=== PATIENT | male | born 1940 | race Caucasian/White ===

== ENCOUNTER 2022-08-19 12:22 | Inpatient (IN) | payer OTHER, BC ==
[2022-08-19] MEDS ORDERED: ACETAMINOPHEN 1000 MG/100 ML BAG IVPB ONE (13:42)
[2022-08-19] MEDS ORDERED: ACETAMINOPHEN INJECTION 100 ML IVPB ONE (13:44)
[2022-08-19] MEDS ORDERED: CEFTRIAXONE 2 GM-D5W BAG 2 GM/50 ML BAG IVPB ONE (13:48)
[2022-08-19] MEDS ORDERED: CEFTRIAXONE 2 GM/100 ML BAG IVPB ONE (13:59)
[2022-08-19] MEDS ORDERED: SODIUM CHLORIDE 1,000 ML IV SCH (14:00)
[2022-08-19 14:37] LABS: INR 1.06 (0.83-1.09); PROTHROMBIN TIME (PATIENT) 12.3 SEC (9.7-13.0)
[2022-08-19 14:40] LABS: ACTIVATED PTT 31.3 SECONDS (25.2-36.5)
[2022-08-19] MEDS: DEXTROSE 5%-0.45% SALINE 1,000 ML IV SCH (16:58)
[2022-08-19 17:58] VITALS: BMI 36.5
[2022-08-20] MEDS ORDERED: ACETAMINOPHEN 1000 MG/100 ML BAG IVPB PRN (08:34)
[2022-08-20] MEDS: CEFTRIAXONE 1 GM in DEXTROSE 5%-WATER - 50 ML IVPB SCH (10:05)
[2022-08-20] MEDS: amLODIPine BESYLATE 5 MG TABLET (FP) PO SCH (11:30)
[2022-08-20] MEDS: ENOXAPARIN NA (PORCINE) 40 MG/0.4 ML DISP.SYRIN SQ SCH (17:37)
[2022-08-20] MEDS: DEXTROSE 5%-0.45% SALINE 1,000 ML IV SCH (17:38)
[2022-08-20] MEDS ORDERED: MELATONIN 5 MG TABLETS PO ONE (21:30)
[2022-08-20] MEDS: ATORVASTATIN CA 20 MG TABLET (FP) PO SCH (21:38)
[2022-08-20] MEDS: ALLOPURINOL 100 MG TABLET (FP) PO SCH (21:38)
[2022-08-20] MEDS: TAMSULOSIN HCL 0.4 MG CAP PO SCH (21:39)
[2022-08-21 09:14] LABS: BASO % 0.6 % (0-2.0); EOS % 1.7 % (0-4.5); HEMATOCRIT 33.9 % (35.4-49); HEMOGLOBIN 11.8 GM/dL (11.7-16.9); LYMPH % 25.4 % (8-40); MCH 30.7 pg (25.7-33.7); MCHC 34.9 g/dl (32.0-35.9); MEAN CELL VOLUME 87.8 fl (80-96); MEAN PLT VOLUME 8.3 fl (7.5-11.1); MONO % 6.2 % (3.8-10.2); NEUT % 66.1 % (42.8-82.8); PLATELET COUNT 182 10^3/uL (134-434); RBC 3.86 M/mm3 (4.00-5.60); WHITE BLOOD COUNT 5.6 K/mm3 (4.0-10.0)
[2022-08-21] MEDS: HYDROCHLOROTHIAZIDE 12.5 MG CAPSULE (FP) PO SCH (09:23)
[2022-08-21] MEDS: LOSARTAN POTASSIUM 50 MG TABLET PO SCH (09:23)
[2022-08-21] MEDS: ENOXAPARIN NA (PORCINE) 40 MG/0.4 ML DISP.SYRIN SQ SCH (09:23)
[2022-08-21] MEDS: amLODIPine BESYLATE 5 MG TABLET (FP) PO SCH (09:23)
[2022-08-21] MEDS: CEFTRIAXONE 1 GM in DEXTROSE 5%-WATER - 50 ML IVPB SCH (09:23)
[2022-08-21] MEDS: PANTOPRAZOLE 40 MG TABLET PO SCH (09:24)
[2022-08-21] MEDS: DEXTROSE 5%-0.45% SALINE 1,000 ML IV SCH ×2 (09:25→17:31)
[2022-08-21 09:55] LABS: POTASSIUM 3.9 mmol/L (3.5-5.1)
[2022-08-21 10:01] LABS: ALBUMIN 4.1 g/dl (3.4-5.0); BLOOD UREA NITROGEN 14.4 mg/dL (7-18)
[2022-08-21 10:03] LABS: CREATININE 1.2 mg/dL (0.55-1.3)
[2022-08-21 10:04] LABS: BILIRUBIN,TOTAL 0.6 mg/dL (0.2-1); TOT PROT 7.5 g/dl (6.4-8.2)
[2022-08-21] MEDS: ATORVASTATIN CA 20 MG TABLET (FP) PO SCH (21:18)
[2022-08-21] MEDS: TAMSULOSIN HCL 0.4 MG CAP PO SCH (21:18)
[2022-08-21] MEDS: ALLOPURINOL 100 MG TABLET (FP) PO SCH (21:18)
[2022-08-21] MEDS ORDERED: MELATONIN 5 MG TABLETS PO ONE (21:23)
[2022-08-22] MEDS: PANTOPRAZOLE 40 MG TABLET PO SCH (12:04)
[2022-08-22] MEDS: amLODIPine BESYLATE 5 MG TABLET (FP) PO SCH (12:04)
[2022-08-22] MEDS: ENOXAPARIN NA (PORCINE) 40 MG/0.4 ML DISP.SYRIN SQ SCH (12:04)
[2022-08-22] MEDS: CEFTRIAXONE 1 GM in DEXTROSE 5%-WATER - 50 ML IVPB SCH (12:04)
[2022-08-22] MEDS: LOSARTAN POTASSIUM 50 MG TABLET PO SCH (12:04)
[2022-08-22] MEDS: HYDROCHLOROTHIAZIDE 12.5 MG CAPSULE (FP) PO SCH (12:04)
[2022-08-22] MEDS ORDERED: PROPOFOL 20 ML ONE (15:57)
[2022-08-22] MEDS ORDERED: MIDAZOLAM HCL 2 MG/2 ML SINGLE DOSE VIAL ONE (15:57)
[2022-08-22] MEDS ORDERED: ROCURONIUM BROMIDE 50 MG/5 ML SYRINGE ONE (16:26)
[2022-08-22] MEDS ORDERED: BUPIVACAINE HCL/PF 0.5% (5 MG/ML) 30 ML VIAL IJ ONE (16:33)
[2022-08-22] MEDS ORDERED: NEOSTIGMINE METHYLSULFATE 0.5 MG/1 ML - 10 ML MDV ONE (17:19)
[2022-08-22] MEDS ORDERED: ONDANSETRON 4 MG/2 ML VIAL IVPUSH PRN ×2 (17:48→17:54)
[2022-08-22] MEDS ORDERED: DEXTROSE 5%-0.45% SALINE 1,000 ML IV SCH (17:54)
[2022-08-22] MEDS ORDERED: oxyCODONE HCL 5 MG TABLET PO PRN (17:57)
[2022-08-22] MEDS ORDERED: LACTATED RINGERS SOLUTION 1,000 ML IV SCH ×2 (18:00)
[2022-08-22] MEDS ORDERED: ACETAMINOPHEN INJECTION 100 ML IVPB ONE (18:08)
[2022-08-22] MEDS ORDERED: ACETAMINOPHEN 1000 MG/100 ML BAG IVPB ONE (18:16)
[2022-08-22] MEDS: ACETAMINOPHEN 1000 MG/100 ML BAG IVPB SCH (18:27)
[2022-08-22] MEDS ORDERED: TAMSULOSIN HCL 0.4 MG CAP PO SCH (22:00)
[2022-08-22] MEDS ORDERED: ALLOPURINOL 100 MG TABLET (FP) PO SCH (22:00)
[2022-08-23] MEDS ORDERED: KETOROLAC TROMETHAMINE 15 MG/ML VIAL IVPUSH PRN (01:00)
[2022-08-23] MEDS: ACETAMINOPHEN 1000 MG/100 ML BAG IVPB SCH (01:47)
[2022-08-23] MEDS: DEXTROSE 5%-0.45% SALINE 1,000 ML IV SCH (02:48)
[2022-08-23] MEDS ORDERED: amLODIPine BESYLATE 5 MG TABLET (FP) PO SCH (10:00)
[2022-08-23] MEDS ORDERED: ENOXAPARIN NA (PORCINE) 40 MG/0.4 ML DISP.SYRIN SQ SCH (10:00)
[2022-08-23] MEDS ORDERED: PANTOPRAZOLE 40 MG TABLET PO SCH (10:00)
[2022-08-23] MEDS ORDERED: LOSARTAN POTASSIUM 50 MG TABLET PO SCH (10:00)
[2022-08-23] MEDS ORDERED: HYDROCHLOROTHIAZIDE 12.5 MG CAPSULE (FP) PO SCH (10:00)
[2022-08-23 12:18] VITALS: RESP 20
[2022-08-23] MEDS ORDERED: ACETAMINOPHEN 500 MG TABLET (FP) PO PRN (14:00)
[2022-08-23 17:01] LABS: BASO % 0.4 % (0-2.0); HEMATOCRIT 34.1 % (35.4-49); HEMOGLOBIN 11.9 GM/dL (11.7-16.9); LYMPH % 14.9 % (8-40); MCH 30.7 pg (25.7-33.7); MCHC 34.8 g/dl (32.0-35.9); MEAN CELL VOLUME 88.2 fl (80-96); MEAN PLT VOLUME 8.3 fl (7.5-11.1); MONO % 7.9 % (3.8-10.2); NEUT % 74.8 % (42.8-82.8); PLATELET COUNT 208 10^3/uL (134-434); RBC 3.87 M/mm3 (4.00-5.60); RDW 13.9 % (11.9-15.9); WHITE BLOOD COUNT 9.7 K/mm3 (4.0-10.0)
[2022-08-23 17:15] VITALS: BP 158/66; PULSE 77; TEMP 98.3
[2022-08-23 17:23] LABS: POTASSIUM 3.2 mmol/L (3.5-5.1)
[2022-08-23 17:25] LABS: ALBUMIN 4.2 g/dl (3.4-5.0); BLOOD UREA NITROGEN 12.5 mg/dL (7-18); CALCIUM 9.4 mg/dL (8.5-10.1)
[2022-08-23 17:28] LABS: CREATININE 1.2 mg/dL (0.55-1.3)
[2022-08-23 17:30] LABS: BILIRUBIN,TOTAL 0.6 mg/dL (0.2-1); TOT PROT 7.2 g/dl (6.4-8.2)
== END 2022-08-23 18:15 | disposition home or self-care (01) | DRG 419 ==
LOC: JER 12:22 → UNDOADMOB 13:49 → JERBED 13:49 → INTOOBSV 13:49 → J8W 15:35 → JERBED 15:35 → J8W 15:42 → OBSVTOIN 08-21 13:55
PROVIDERS: ADMIT Surgery; ATTEND Internal Medicine
PROC: 0FT44ZZ Resection of Gallbladder, Percutaneous Endoscopic Approach (ICD-10-PCS; principal; 2022-08-22 11:30)
DX: K81.0 Acute cholecystitis (principal); N40.0 Benign prostatic hyperplasia without lower urinary tract symptoms; I10 Essential (primary) hypertension; G47.30 Sleep apnea, unspecified; E78.00 Pure hypercholesterolemia, unspecified; N28.1 Cyst of kidney, acquired
CPT/HCPCS: 36415; 74176-TC; 76705-TC; 78226-TC; 80053; 80061; 81003; 83036; 84153; 85025; 85610; 85730; 86850; 86900; 86901; 87635; 88304-TC; 93005; 93010; 94010; 94760; 99285-25; A9537; G0378; Q9967

== ENCOUNTER 2022-10-16 11:39 | Observation (INO) | payer OTHER, BC ==
[2022-10-16 11:58] VITALS: BMI 40.2
[2022-10-16] MEDS ORDERED: ACETAMINOPHEN 1000 MG/100 ML BAG IVPB ONE (13:31)
[2022-10-16] MEDS ORDERED: KETOROLAC TROMETHAMINE 30 MG/1 ML VIAL IVPUSH ONE (13:31)
[2022-10-16] MEDS ORDERED: SODIUM CHLORIDE 0.9% 500 ML INFUS.BAG IV ONE (13:32)
[2022-10-16] MEDS ORDERED: ACETAMINOPHEN INJECTION 100 ML IVPB ONE (13:35)
[2022-10-16] MEDS ORDERED: KETOROLAC TROMETHAMINE 30 MG/1 ML VIAL ONE (13:35)
[2022-10-16 14:36] LABS: BASO % 0.2 % (0-2.0); EOS % 0.2 % (0-4.5); HEMATOCRIT 30.9 % (35.4-49); HEMOGLOBIN 10.5 GM/dL (11.7-16.9); MCH 30.2 pg (25.7-33.7); MCHC 33.8 g/dl (32.0-35.9); MEAN CELL VOLUME 89.2 fl (80-96); MEAN PLT VOLUME 9.6 fl (7.5-11.1); MONO % 8.1 % (3.8-10.2); NEUT % 84.5 % (42.8-82.8); PLATELET COUNT 169 10^3/uL (134-434); RBC 3.46 M/mm3 (4.00-5.60); WHITE BLOOD COUNT 13.9 K/mm3 (4.0-10.0)
[2022-10-16 14:43] LABS: INR 1.2 (0.83-1.09); PROTHROMBIN TIME (PATIENT) 13.9 SEC (9.7-13.0)
[2022-10-16 14:46] LABS: ACTIVATED PTT 24.2 SECONDS (25.2-36.5)
[2022-10-16 14:56] LABS: POTASSIUM 4.2 mmol/L (3.5-5.1)
[2022-10-16 14:58] LABS: CALCIUM 8.5 mg/dL (8.5-10.1)
[2022-10-16 14:59] LABS: ALBUMIN 3.4 g/dl (3.4-5.0); BLOOD UREA NITROGEN 30.2 mg/dL (7-18)
[2022-10-16 15:02] LABS: CREATININE 2.3 mg/dL (0.55-1.3)
[2022-10-16 15:03] LABS: BILIRUBIN,TOTAL 0.9 mg/dL (0.2-1); TOT PROT 6.8 g/dl (6.4-8.2)
[2022-10-16 15:29] LABS: ERYTHROCYTE SEDIMENTATION RATE 97 mm/hr (0-20)
[2022-10-16 15:47] LABS: EPI CELLS >36 /uL (0-25.1); HYALINE CASTS 35 /uL (0-3.1); URINE APPEARANCE CLOUDY; URINE BACTERIA 5 /uL (0-1359); URINE BILIRUBIN 1+ (NEGATIVE); URINE COLOR DK YELLOW; URINE GLUCOSE (UA) NEGATIVE (NEGATIVE); URINE KETONE TRACE (NEGATIVE); URINE LEUK ESTERASE TRACE (NEGATIVE); URINE NITRITE NEGATIVE (NEGATIVE); URINE PROTEIN 1+ (NEGATIVE); URINE UROBILINOGEN 0.2 mg/dL (0.2-1.0); URINE WBC 161 /uL (0-25.8)
[2022-10-16 16:13] LABS: URINE RBC 39.1 /uL (0-23.9)
[2022-10-16 21:32] LABS: BASO % 0.3 % (0-2.0); EOS % 1.4 % (0-4.5); HEMATOCRIT 28.2 % (35.4-49); HEMOGLOBIN 9.7 GM/dL (11.7-16.9); LYMPH % 16.4 % (8-40); MCH 30.3 pg (25.7-33.7); MCHC 34.3 g/dl (32.0-35.9); MEAN CELL VOLUME 88.2 fl (80-96); MEAN PLT VOLUME 8.4 fl (7.5-11.1); MONO % 10.5 % (3.8-10.2); NEUT % 71.4 % (42.8-82.8); PLATELET COUNT 165 10^3/uL (134-434); RDW 14.1 % (11.9-15.9); WHITE BLOOD COUNT 9.5 K/mm3 (4.0-10.0)
[2022-10-17] MEDS ORDERED: TAMSULOSIN HCL 0.4 MG CAP ONE (08:25)
[2022-10-17] MEDS ORDERED: TAMSULOSIN HCL 0.4 MG CAP PO SCH (08:30)
[2022-10-17 08:37] LABS: BASO % 0.5 % (0-2.0); EOS % 2.1 % (0-4.5); HEMATOCRIT 27.8 % (35.4-49); HEMOGLOBIN 9.6 GM/dL (11.7-16.9); LYMPH % 13.5 % (8-40); MCH 30.2 pg (25.7-33.7); MCHC 34.6 g/dl (32.0-35.9); MEAN CELL VOLUME 87.4 fl (80-96); MEAN PLT VOLUME 8.9 fl (7.5-11.1); MONO % 8.6 % (3.8-10.2); NEUT % 75.3 % (42.8-82.8); PLATELET COUNT 177 10^3/uL (134-434); RBC 3.18 M/mm3 (4.00-5.60); RDW 14.1 % (11.9-15.9); WHITE BLOOD COUNT 7.4 K/mm3 (4.0-10.0)
[2022-10-17 08:57] LABS: POTASSIUM 3.7 mmol/L (3.5-5.1)
[2022-10-17 09:00] LABS: CALCIUM 8.7 mg/dL (8.5-10.1)
[2022-10-17 09:01] LABS: BLOOD UREA NITROGEN 32.6 mg/dL (7-18)
[2022-10-17 09:03] LABS: CREATININE 1.9 mg/dL (0.55-1.3)
[2022-10-17 09:05] LABS: BILIRUBIN,TOTAL 0.5 mg/dL (0.2-1); TOT PROT 6.1 g/dl (6.4-8.2)
[2022-10-17 09:56] VITALS: TEMP 98.9
[2022-10-17] MEDS ORDERED: amLODIPine BESYLATE 5 MG TABLET (FP) PO SCH (10:00)
[2022-10-17] MEDS ORDERED: PANTOPRAZOLE 20 MG TABLET PO SCH (10:00)
[2022-10-17] MEDS ORDERED: PANTOPRAZOLE 20 MG TABLET PO ONE (10:25)
[2022-10-17 12:56] VITALS: BP 119/69; PULSE 96; RESP 16
[2022-10-17] MEDS ORDERED: ATORVASTATIN CA 20 MG TABLET (FP) PO SCH (22:00)
== END 2022-10-17 13:08 | disposition home or self-care (01) ==
LOC: JER 11:39 → JERBED 18:35
PROVIDERS: ADMIT Internal Medicine; ATTEND Internal Medicine
PROC: 3E033NZ Introduction of Analgesics, Hypnotics, Sedatives into Peripheral Vein, Percutaneous Approach (ICD-10-PCS; principal; 2022-10-16)
PROC: 3E0333Z Introduction of Anti-inflammatory into Peripheral Vein, Percutaneous Approach (ICD-10-PCS; 2022-10-16)
PROC: 3E0337Z Introduction of Electrolytic and Water Balance Substance into Peripheral Vein, Percutaneous Approach (ICD-10-PCS; 2022-10-16)
DX: N17.9 Acute kidney failure, unspecified (principal); R21 Rash and other nonspecific skin eruption; E78.00 Pure hypercholesterolemia, unspecified; I10 Essential (primary) hypertension; Z87.891 Personal history of nicotine dependence; Z88.0 Allergy status to penicillin; M79.10 Myalgia, unspecified site; N40.0 Benign prostatic hyperplasia without lower urinary tract symptoms; Z85.46 Personal history of malignant neoplasm of prostate; M10.9 Gout, unspecified; G47.30 Sleep apnea, unspecified; N20.0 Calculus of kidney
CPT/HCPCS: 0241U-QW; 36415; 71046-TC-FY; 80053; 81003; 82550; 82930; 83690; 84484; 85025; 85610; 85651; 85730; 86140; 86618; 86666; 86757; 87040; 87070; 87086; 87651; 93005; 93010; 96374; 96375; 99285-25; G0378

== ENCOUNTER 2024-06-28 04:54 | Inpatient (IN) | payer OTHER, BC ==
[2024-06-28 05:04] VITALS: BMI 36.1
[2024-06-28] MEDS ORDERED: ONDANSETRON 4 MG/2 ML VIAL ONE (05:51)
[2024-06-28] MEDS ORDERED: ACETAMINOPHEN INJECTION 100 ML ONE (05:51)
[2024-06-28] MEDS: SODIUM CHLORIDE 0.9% 500 ML INFUS.BAG IV ONE (06:15)
[2024-06-28] MEDS: ACETAMINOPHEN 1000 MG/100 ML BAG IVPB ONE (06:15)
[2024-06-28] MEDS: ONDANSETRON 4 MG/2 ML VIAL IVPUSH ONE (06:16)
[2024-06-28 06:43] LABS: HEMATOCRIT 34.9 % (40.1-51.0); HEMOGLOBIN 11.7 g/dL (13.7-17.5); MCHC 33.5 g/dl (32.3-36.5); MEAN CELL VOLUME 87.3 fl (79.0-92.2); MEAN PLT VOLUME 10.4 fl (9.4-12.4); PLATELET COUNT 157 x10^3/uL (163-337); RDW 13.2 % (12.6-16.6)
[2024-06-28 06:50] LABS: ALBUMIN 3.4 g/dl (3.4-5.0); BLOOD UREA NITROGEN 32.5 mg/dL (7-18); MAGNESIUM 1.5 mg/dL (1.8-2.4)
[2024-06-28 06:53] LABS: CREATININE 2.1 mg/dL (0.55-1.3)
[2024-06-28 06:55] LABS: BILIRUBIN,TOTAL 0.3 mg/dL (0.2-1); TOT PROT 6.7 g/dl (6.4-8.2)
[2024-06-28] MEDS ORDERED: MAGNESIUM SULFATE IN WATER 2 GM/50 ML IVPB IVPB ONE (06:59)
[2024-06-28] MEDS: MAGNESIUM SULF 50% (8.12 MEQ/2 ML-1 GM VIAL) IVPB ONE (07:07)
[2024-06-28] MEDS: POTASSIUM CHLORIDE ORAL LIQUID 20 MEQ/15 ML PO ONE (07:07)
[2024-06-28] MEDS ORDERED: POTASSIUM CHLORIDE ORAL LIQUID 20 MEQ/15 ML ONE (07:08)
[2024-06-28] MEDS ORDERED: KCL 10 MEQ IVPB 10 MEQ/100 ML INFUS.BAG IVPB ONE ×2 (08:25→09:59)
[2024-06-28] MEDS ORDERED: ACETAMINOPHEN 325 MG TABLET (FP) PO PRN (08:35)
[2024-06-28] MEDS ORDERED: ONDANSETRON 4 MG/2 ML VIAL IVPUSH PRN (08:37)
[2024-06-28] MEDS: KCL 10 MEQ IVPB 10 MEQ/100 ML INFUS.BAG IVPB SCH (08:50)
[2024-06-28] MEDS: SODIUM CHLORIDE 1,000 ML IV SCH (09:24)
[2024-06-28] MEDS ORDERED: PANTOPRAZOLE 20 MG TABLET PO ONE (10:33)
[2024-06-28] MEDS ORDERED: amLODIPine BESYLATE 5 MG TABLET (FP) ONE (10:33)
[2024-06-28] MEDS ORDERED: HEPARIN NA (PORCINE) 5,000 UNITS/ML 1ML VIAL ONE (10:33)
[2024-06-28] MEDS: HEPARIN NA (PORCINE) 5,000 UNITS/ML 1ML VIAL SQ SCH (11:09)
[2024-06-28] MEDS: PANTOPRAZOLE 20 MG TABLET PO SCH (11:09)
[2024-06-28] MEDS: amLODIPine BESYLATE 5 MG TABLET (FP) PO SCH (11:09)
[2024-06-28] MEDS: D5-1/2NS+20 MEQ KCL - 20 MEQ/1,000 ML INFUS.BAG IV SCH (11:11)
[2024-06-28] MEDS: ALLOPURINOL 100 MG TABLET (FP) PO SCH (21:52)
[2024-06-28] MEDS: ATORVASTATIN CA 20 MG TABLET (FP) PO SCH (21:52)
[2024-06-28] MEDS: TAMSULOSIN HCL 0.4 MG CAP PO SCH (21:52)
[2024-06-28] MEDS: clonazePAM 0.5 MG TABLET PO PRN (23:28)
[2024-06-29 07:52] LABS: ABSOLUTE IMMATURE GRANULOCYTES 0.02 x10^3/uL (0.0-0.031); BASOPHILS # 0.01 x10^3/uL (0.01-0.08); EOSINOPHIL % 1.8 % (0.8-7.0); EOSINOPHILS # 0.08 x10^3/uL (0.04-0.54); HEMATOCRIT 30.8 % (40.1-51.0); HEMOGLOBIN 10.3 g/dL (13.7-17.5); MCHC 33.4 g/dl (32.3-36.5); MEAN CELL VOLUME 86.8 fl (79.0-92.2); MEAN PLT VOLUME 10.8 fl (9.4-12.4); MONOCYTE # 0.57 x10^3/uL (0.30-0.82); MONOCYTE % 12.9 % (5.3-12.2); PLATELET COUNT 154 x10^3/uL (163-337); RDW 13.4 % (12.6-16.6)
[2024-06-29 08:00] LABS: POTASSIUM 3.6 mmol/L (3.5-5.1)
[2024-06-29 08:02] LABS: CALCIUM 8.8 mg/dL (8.5-10.1)
[2024-06-29 08:03] LABS: BLOOD UREA NITROGEN 17.4 mg/dL (7-18)
[2024-06-29 08:04] LABS: MAGNESIUM 1.9 mg/dL (1.8-2.4)
[2024-06-29 08:06] LABS: CREATININE 1.3 mg/dL (0.55-1.3)
[2024-06-29 08:08] LABS: BILIRUBIN,TOTAL 0.3 mg/dL (0.2-1)
[2024-06-29] MEDS: D5-1/2NS+20 MEQ KCL - 20 MEQ/1,000 ML INFUS.BAG IV SCH (15:41)
[2024-06-29] MEDS: MELATONIN 5 MG TABLETS PO PRN (21:19)
[2024-06-30 10:23] VITALS: BP 154/65; PULSE 70; RESP 18; TEMP 97.7
== END 2024-06-30 15:24 | disposition home or self-care (01) | DRG 392 ==
LOC: JER 04:54 → JERBED 07:48 → OBSVTOIN 08:35 → JERBED 10:37 → J7W 12:06
PROVIDERS: ADMIT Internal Medicine; ATTEND Internal Medicine
DX: K52.9 Noninfective gastroenteritis and colitis, unspecified (principal); E87.6 Hypokalemia; I10 Essential (primary) hypertension; E78.5 Hyperlipidemia, unspecified; N40.0 Benign prostatic hyperplasia without lower urinary tract symptoms; E66.9 Obesity, unspecified; Z68.34 Body mass index [BMI] 34.0-34.9, adult; E86.0 Dehydration
CPT/HCPCS: 0241U-QW; 36415; 80053; 83735; 84484; 85025; 85027; 93005; 93010; 99285-25; G0378; J0131; J1644